=== PATIENT | male | born 1960 | race Caucasian/White ===

== ENCOUNTER 2021-03-23 21:11 | Emergency (ER) | payer OTHER ==
[~2021-03-23] VITALS: Ht 177.8 cm; Wt 104.7 kg
[2021-03-23 22:43] VITALS: BP 145/94
== END 2021-03-23 22:45 | disposition home or self-care (01) ==
LOC: ER 21:11
DX: R07.89 Other chest pain (principal); M54.9 Dorsalgia, unspecified; M79.604 Pain in right leg; V87.7XXA Person injured in collision between other specified motor vehicles (traffic), initial encounter; Y93.89 Activity, other specified; Y92.488 Other paved roadways as the place of occurrence of the external cause; Y99.8 Other external cause status
CPT/HCPCS: 71046; 99283

== ENCOUNTER 2021-03-25 00:21 | Emergency (ER) | payer OTHER ==
[~2021-03-25] VITALS: Ht 177.8 cm; Wt 102.7 kg
[2021-03-25 00:47] VITALS: BP 131/91
== END 2021-03-25 01:15 | disposition home or self-care (01) ==
LOC: ER 00:21
DX: R07.89 Other chest pain (principal); R10.13 Epigastric pain; R00.2 Palpitations; Z88.8 Allergy status to other drugs, medicaments and biological substances
CPT/HCPCS: 71045; 93005; 99283